=== PATIENT | female | born 1975 | race Hispanic/Latino ===

== ENCOUNTER 2019-09-13 17:33 | Inpatient (IN) | payer OTHER, SELFPAY ==
[2019-09-13 18:16] LABS: #Lymphocytes 1.1 thou/uL (1.20-3.40); #Neutrophils 11.2 thou/uL (1.40-6.50); %Basophils 0.3 % (0.0-1.0); %Eosinophils 0.4 % (0.0-10.0); %Monocytes 7.2 % (0.0-10.0); %Neutrophils 84.2 % (42.0-75.0); Hemoglobin 6.6 g/dL (12.0-16.0); Mean Corpuscular HGB CONC 28.3 g/dL (32.0-36.0); Mean Corpuscular Hemoglobin 16.7 pg (27.0-31.0); Mean Corpuscular Volume 59.2 fL (78.0-98.0); Mean Platelet Volume 9.8 fL (7.4-10.4); Platelet Count 259 thou/uL (130-400); RBC Distribution Width 20.2 % (11.5-14.5); Red Blood Cell (RBC) Count 3.93 mill/uL (4.20-5.40); White Blood Cell (WBC) Count 13.3 thou/uL (4.8-10.8)
[2019-09-13] MEDS ORDERED: cefTRIAXone\\ROCEPHIN 2 GM VIAL ONE (18:39)
--- NOTE | 2019-09-13 18:45 | RAD ---
PORTABLE CHEST: History: Fever, headache, weakness. Comparison: 11-06-04 FINDINGS: The lungs are well aerated and appear clear. No infiltrate identified. Heart and mediastinum appear n ormal. IMPRESSION: No evidence of infiltrate. POS: AGW
[2019-09-13 18:55] LABS: Anisocytosis SLIGHT = 6-15 cells (100X) (0-5/hpf); Elliptocytes SLIGHT = 2-5 cells (100X) (0-1/hpf); Hypochromia SLIGHT = 6-15 cells (100X) (0-5/hpf); Large Platelets SLIGHT; MDiff Complete? YES; Microcytosis SLIGHT = 6-15 cells (100X) (0-5/hpf); Ovalocytes SLIGHT = 2-5 cells (100X) (0-1/hpf); Platelet Morphology Comment Appears Adequate; Polychromasia SLIGHT = 2-3 cells (100X) (0-2/hpf); Reflex for Review?? YES; Schistocytes SLIGHT = 2-5 cells (100X) (0-1/hpf)
[2019-09-13 19:21] LABS: ALT (SGPT) 28 U/L (8-55); AST (SGOT) 37 U/L (5-34); Albumin 3.4 g/dL (3.5-5.0); Alkaline Phosphatase 78 U/L (40-110); Anion Gap 14 mmol/L (10-20); BUN (Urea Nitrogen) 14 mg/dL (7.0-18.7); Bilirubin, Total 0.4 mg/dL (0.2-1.2); Calc. Creatinine Clearance 0 mL/min (70-130); Calcium 8.6 mg/dL (7.8-10.44); Carbon Dioxide 19 mmol/L (22-29); Chloride 107 mmol/L (98-107); Estimated GFR-MDRD Greater than 90; Globulin 3.7 g/dL (2.4-3.5); Glucose 129 mg/dL (70-105); Protein, Total 7.1 g/dL (6.0-8.3); Sodium 136 mmol/L (136-145)
[2019-09-13 21:58] LABS: Bacteria/HPF 4+ HPF (None Seen); Bilirubin Negative (Negative); Blood, Urine 2+ (Negative); Clarity Turbid (Clear); Glucose, Urine (Dipstick) Normal (Negative); Ketone, Urine Negative (Negative); Leukocyte 500 Leu/uL (Negative); Mucous/LPF Rare LPF (<2+); Nitrite 2+ (Negative); Protein, Urine (Dipstick) 200 mg/dL (Neg-Trace); RBC/HPF 21-50 HPF (0-3); Renal Epithelial 0-3 HPF (None Seen); Specific Gravity, Urine 1.022 (1.002-1.036); Squamous Epithelial 0-3 HPF (0-3); Urobilinogen Normal mg/dL (Less than 2); WBC/HPF Greater than 50 HPF (0-3)
[2019-09-13] MEDS ORDERED: Guaifenesin DM 100-10/5 ML UDCUP PO PRN (22:54)
[2019-09-13] MEDS ORDERED: HYDROcodone/Acetaminophen 5/325 mg Tablet PO PRN ×2 (22:54)
[2019-09-13] MEDS ORDERED: Acetaminophen 650 MG Suppository PR PRN (22:54)
[2019-09-13] MEDS ORDERED: Ondansetron ODT 4 MG TAB PO PRN (22:54)
[2019-09-13] MEDS ORDERED: Ondansetron PF 4 MG/2 ML Vial IVP PRN (22:54)
[2019-09-13] MEDS ORDERED: Sodium Chloride 0.9% 1,000 ML IV SCH (23:00)
--- NOTE | 2019-09-13 23:20 | PDOC.HHP ---
Hospitalist HPI - History of Present Illness weakness generalize malaise History of Present Illness: Case of an 43y/o female with pmhx of chronic anemia who comes to hospital complaining of general weakness, general malaise, chills, nausea and body aches since of last week. patient states that she decided to come today because she kept feeling worse. refers went to a clinic today when she got tested for covid and was negative, she kept feeling bad for which she decided to come to hospital for evaluation. patient denies fever cough sputum production or diarrhea does refers some headache and dysuria. at the ED patient was diagnosed with covid 19+ with positive test, uti and anemia wich a hg of 6. patient states that her pcp did told her she had anemia and to eat meat, but has never required a tranfusion, also denies any abnormal bleeding from cuts or menses also denies any spontaneous hematomas, patient does refer recent weight loss Hospitalist ROS - Review of Systems All other systems reviewed; all pertinent +/- noted in HPI/Subj Hospitalist History - Social History Smoking Status: Never smoker Alcohol: reports: None Drugs: reports: none Living Situation: With Family - Exam General Appearance: ill appearing Eye: PERRL, anicteric sclera ENT: normocephalic atraumatic, no oropharyngeal lesions Neck: supple, symmetric, no JVD Heart: no murmur, no gallops, no rubs Heart - other findings: tachycardic Respiratory: CTAB, no wheezes, no rales, no ronchi Gastrointestinal: soft, non-tender, non-distended, normal bowel sounds Gastrointestinal - other findings: palpable hard mass on LLQ Extremities: no cyanosis, no clubbing, no edema Skin: normal turgor, no lesions, no rashes Neurological: cranial nerve grossly intact, normal sensation to touch Musculoskeletal: normal tone, normal strength, no muscle wasting Psychiatric: normal affect, normal behavior, A&O x 3 Hospitalist Results - Labs Result Diagrams: 09/13/19 17:56 09/13/19 17:44 Lab results: WBC 13.3 thou/uL (4.8-10.8) H 09/13/19 17:56 Hgb 6.6 g/dL (12.0-16.0) L 09/13/19 17:56 Hct 23.3 % (36.0-47.0) L 09/13/19 17:56 MCV 59.2 fL (78.0-98.0) L 09/13/19 17:56 Plt Count 259 thou/uL (130-400) 09/13/19 17:56 Neutrophils % 84.2 % (42.0-75.0) H 09/13/19 17:56 Sodium 136 mmol/L (136-145) 09/13/19 17:44 Potassium 4.0 mmol/L (3.5-5.1) 09/13/19 17:44 Chloride 107 mmol/L (98-107) 09/13/19 17:44 Carbon Dioxide 19 mmol/L (22-29) L 09/13/19 17:44 BUN 14 mg/dL (7.0-18.7) 09/13/19 17:44 Creatinine 0.65 mg/dL (0.6-1.1) 09/13/19 17:44 Glucose 129 mg/dL (70-105) H 09/13/19 17:44 Lactic Acid 1.9 mmol/L (0.5-2.2) 09/13/19 17:56 Calcium 8.6 mg/dL (7.8-10.44) 09/13/19 17:44 Total Bilirubin 0.4 mg/dL (0.2-1.2) 09/13/19 17:44 AST 37 U/L (5-34) H 09/13/19 17:44 ALT 28 U/L (8-55) 09/13/19 17:44 Alkaline Phosphatase 78 U/L (40-110) 09/13/19 17:44 Troponin I Less than 0.010 ng/mL (< 0.028) 09/13/19 17:44 Serum Total Protein 7.1 g/dL (6.0-8.3) 09/13/19 17:44 Albumin 3.4 g/dL (3.5-5.0) L 09/13/19 17:44 Urine Ketones Negative mg/dL (Negative) 09/13/19 21:37 Urine Blood 2+ (Negative) A 09/13/19 21:37 Urine Nitrite 2+ (Negative) A 09/13/19 21:37 Ur Leukocyte Esterase 500 Karime/uL (Negative) A 09/13/19 21:37 Urine RBC 21-50 HPF (0-3) A 09/13/19 21:37 Urine WBC Greater than 50 HPF (0-3) A 09/13/19 21:37 Ur Squamous Epith Cells 0-3 HPF (0-3) 09/13/19 21:37 Urine Bacteria 4+ HPF (None Seen) A 09/13/19 21:37 Hospitalist H&P A/P - Problem (1) COVID-19 Code(s): U07.1 - COVID-19 Status: Acute (2) UTI (urinary tract infection) Status: Acute (3) Anemia Code(s): D64.9 - ANEMIA, UNSPECIFIED Status: Acute (4) Sepsis Code(s): A41.9 - SEPSIS, UNSPECIFIED ORGANISM Status: Acute - Plan Plan: 43 y/o female with the stated pmhx who comes to hospital with viral like syndromes, dx with covid, uti and anemia acute on chronic anemia - hg 6.6 will be transfused 2 prbcs - fecal occult blood x2 - decreased mcv will order iron panel, increased rdw might have mixed compenent will also order folate and v12 - patient with a suspicious hard mass on abdomen, pt does refers this is normal for her but given the fact that its an obvious mass and her decrease in hg and recent weight loss will evaluated this further with abd CT covid 19 - tested positive today - started prophylactically on rocephin and azithrimycin - cxr clean - 100% 02 sat at [facility], if this worsens consider adding dexamethasone 6mg ivd x 10 days uti - u/a consistent with uti - f/u blood urine cultures - on rocephin sepsis - tachycardia with elevated wbc with urine as target + covid + - sepsis bundles initialled, pt receive ivfs, cultures were taken and abx were started - LA 1.9
[2019-09-13] MEDS ORDERED: Azithromycin 500 MG in Sodium Chloride 0.9% 250 ML 250 ML IVPB SCH (23:59)
[2019-09-14 00:42] VITALS: BMI 15.0
[2019-09-14] MEDS: Acetaminophen 325 MG TAB PO PRN ×4 (01:24→22:10)
[2019-09-14 06:57] LABS: Band 9 % (5-11); Hemoglobin 8.3 g/dL (12.0-16.0); Hypochromia SLIGHT = 6-15 cells (100X) (0-5/hpf); Lymphocytes 7 % (21-51); MDiff Complete? YES; Mean Corpuscular Volume 63.5 fL (78.0-98.0); Mean Platelet Volume 10.2 fL (7.4-10.4); Monocytes 4 % (0-10); Neutrophil 80 % (42-75); Platelet Count 222 thou/uL (130-400); Platelet Morphology Comment Appears Adequate; Red Blood Cell (RBC) Count 4.34 mill/uL (4.20-5.40); Target Cells SLIGHT = 2-5 cells (100X) (0-1/hpf); White Blood Cell (WBC) Count 10.1 thou/uL (4.8-10.8)
[2019-09-14 07:03] LABS: ALT (SGPT) 28 U/L (8-55); AST (SGOT) 40 U/L (5-34); Albumin 3.1 g/dL (3.5-5.0); Alkaline Phosphatase 93 U/L (40-110); Anion Gap 11 mmol/L (10-20); BUN (Urea Nitrogen) 12 mg/dL (7.0-18.7); Bilirubin, Total 0.5 mg/dL (0.2-1.2); Calc. Creatinine Clearance 58 mL/min (70-130); Carbon Dioxide 21 mmol/L (22-29); Chloride 109 mmol/L (98-107); Estimated GFR-MDRD Greater than 90; Globulin 3.4 g/dL (2.4-3.5); Glucose 95 mg/dL (70-105); Iron 11 ug/dL (50-170); Iron Binding Capacity, Total 260 mcg/dL (265-497); Potassium 3.6 mmol/L (3.5-5.1); Protein, Total 6.5 g/dL (6.0-8.3); Sodium 137 mmol/L (136-145)
--- NOTE | 2019-09-14 09:43 | CT ---
CT ABDOMEN AND PELVIS WITH ORAL AND IV CONTRAST: Date: 09/14/2019 HISTORY: Abdominal mass. FINDINGS: The lung bases are clear. The liver, spleen, pancreas, adrenal glands, and left kidney are normal. Th ere is a delayed right nephrogram with hydroureteronephrosis on the right. No calcified gallstones ar e seen. There is a complex abdominopelvic mass with solid and cystic components measuring 2.4 cm (CC) x 11.5 cm (AP) x 17.0 cm (transverse) arising from the right adnexal region. There is mass effect an d deviation of the uterus to the left. This may either be arising from the right ovary or may represe nt an exophytic uterine leiomyoma. No free air, free fluid, or lymphadenopathy seen. No osteolytic or osteoblastic lesions are seen. IMPRESSION: Large abdominopelvic mass likely of gynecologic origin. Consultation with cutter tender is recommended . POS: SJSHILO
[2019-09-14] MEDS ORDERED: Iopamidol-370 76% 500 ML 1 ML ONE (10:03)
[2019-09-14] MEDS: Sodium Chloride 0.9% 1,000 ML IV SCH ×2 (13:18→20:07)
[2019-09-14] MEDS: Ferrous Sulfate 325 MG TAB PO SCH (16:05)
--- NOTE | 2019-09-14 16:36 | PDOC.HOSPP ---
- Subjective Encounter Date: 09/14/19 Encounter Time: 11:45 Subjective: pt up in bed no complains - Objective Vital Signs & Weight: Vital Signs (12 hours) Temp Pulse Pulse Resp BP BP Pulse Ox 09/14/19 16:00 100.4 F H 101 H 20 103/63 100 09/14/19 11:55 98.6 F 84 16 103/65 98 09/14/19 10:01 99.9 F H 103 H 18 104/67 96 09/14/19 09:46 99.9 F H 101 H 18 107/68 97 09/14/19 08:00 101.5 F H 105 H 22 H 104/69 100 09/14/19 06:15 98.5 F 89 22 H 105/64 100 Weight Admit Weight 76 lb 11.534 oz Weight 76 lb 11.534 oz I&O: 09/13/19 09/14/19 09/15/19 06:59 06:59 06:59 Intake Total 1350 350 Output Total 700 Balance 650 350 Result Diagrams: 09/14/19 06:18 09/14/19 06:18 Hospitalist ROS - Review of Systems Cardiovascular: denies: chest pain, palpitations, orthopnea, paroxysmal noc. dyspnea, edema, light headedness, other Gastrointestinal: denies: nausea, vomiting, abdominal pain, diarrhea, constipation, melena, hematochezia, other Genitourinary: denies: dysuria, frequency, incontinence, hematuria, retention, other - Medication Medications: Active Medications Generic Name Dose Route Start Last Admin Trade Name Freq PRN Reason Stop Dose Admin Acetaminophen 650 mg 09/13/19 22:54 09/14/19 16:28 Tylenol PO 650 mg Q4H PRN Administration Headache/Fever/Mild Pain (1-3) Ferrous Sulfate 325 mg 09/14/19 17:00 09/14/19 16:05 Feosol PO 325 mg BID-WM YUSRA Administration Sodium Chloride 1,000 mls @ 125 mls/hr 09/14/19 09:18 09/14/19 13:18 Normal Saline 0.9% IV 1,000 mls .Q8H YUSRA Administration - Exam Respiratory: rales Gastrointestinal: soft, normal bowel sounds Gastrointestinal - other findings: tender on palpation to RLQ Extremities: negative: no cyanosis, no clubbing, no edema, 1+ LE edema, 2+ LE edema, clubbing Hosp A/P (1) Mass of abdomen Code(s): R19.00 - INTRA-ABD AND PELVIC SWELLING, MASS AND LUMP, UNSP SITE Status: Acute (2) Anemia Code(s): D64.9 - ANEMIA, UNSPECIFIED Status: Acute (3) COVID-19 Code(s): U07.1 - COVID-19 Status: Acute (4) Sepsis Code(s): A41.9 - SEPSIS, UNSPECIFIED ORGANISM Status: Acute (5) UTI (urinary tract infection) Status: Acute (6) Bacteremia Code(s): R78.81 - BACTEREMIA Status: Acute - Plan pt states that she has had this abdomen mass for the past few years. she has never had a pap smear or any gynecology testing. she has lost a significant amount of weight but cannot tell me how much. will continue ceftriaxone and fluids. spoke with obgyn who ordered a ca 125 which was normal. Recommended outpatient workup. On dvt ppx. pt on room air will hold off on start pt on steroids.
--- NOTE | 2019-09-14 17:26 | CON ---
DATE OF CONSULTATION: 09/14/2019 REASON FOR CONSULTATION: Pyelonephritis and COVID infection. HISTORY OF PRESENT ILLNESS: A 43-year-old, 1st admission to this hospital, with a history of anemia and one episode of urinary tract infection in the past, who developed fever and body aches about 8 days before admission. She also has a history of about 10-pound weight loss over the past 11 months. She was having some dysuria as well. Apparently, she went to another emergency room and a rapid screening was done for COVID, which was negative reportedly. Because of persistence of symptoms, she came to [facility]. Initial findings included BP 100/54, pulse 114, respiratory rate 25, temperature 100.1, and O2 saturations were 99 on room air. She appeared uncomfortable at rest. Had some mucosal discharge in the nasal area. The lung examination was normal. The abdomen was described as nontender and without distention. The patient has been given ceftriaxone, Robitussin, and Loyal. Currently Ms. Baez is feeling uncomfortable at rest mostly due to myalgias and abdominal discomfort. She denies any headaches. No visual symptoms, sore throat, odynophagia, or dysphagia. No vomiting. The dysuria has improved. No diarrhea or bleeding. Some back pain. MEDICAL HISTORY: 1. One episode of UTI. 2. She has a G4, P3, and 1. ALLERGIES: NONE. SOCIAL HISTORY: She stays at home. works, but is unemployed at the moment. She has 4 children. Never smoker. CURRENT MEDICATIONS: Have been described above. FAMILY HISTORY: Noncontributory. PHYSICAL EXAMINATION: VITAL SIGNS: T-max 102.2 and now she is 98.6, blood pressure 103/65, pulse 84, respirations 16, and O2 saturation 98 on room air. SKIN: Normal. She is voiding in the toilet. GENERAL: She appears almost cachectic. LYMPHATICS: No lymphadenopathy. HEENT: Ocular movements conjugate. Oral cavity normal. Numerous teeth in place, in fairly decent shape. NECK: Supple. No jugular vein distention. LUNGS: Symmetric, clear breath sounds. HEART: S1 and S2. Regular rate. No S3 or S4. ABDOMEN: Distention in the lower segments right above the suprapubic area. There is dullness to percussion there and appears to be a distended bladder. She has moderate tenderness at the site. No organomegaly noted otherwise. EXTREMITIES: No joint inflammatory activity. No edema. Pulses 1+ in dorsalis pedis. Moves extremities equally. NEUROLOGIC: She is awake and oriented, follows commands. LABORATORY DATA: Sodium 136 and 137, creatinine is stable at 0.68. Iron 11 and TIBC 260, she does have iron deficiency plus anemia of inflammation. Transaminases, mildly elevated AST. Troponin normal. CRP was elevated at 19.63. Albumin 3.4 and globulin 3.7. Procalcitonin was 1.77. Folate 7.9. White cell count was 13, 000 and now at 10,000, hemoglobin 6.6 and 8.3, and platelets were 259, showed a predominance of mature neutrophils. Urinalysis with greater than 50 wbc's. COVID PCR was detected. She had a chest x-ray, which did not show any evidence of infiltrates. An abdomen and pelvis CT scan remarkable for normal left kidney and hydroureteronephrosis on the right side. There is a complex abdominal pelvic mass with solid and cystic components, 2.4 x 11.5 x 17 cm, arising from the right adnexal region. 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 In addition to that, she has mild COVID illness, and no evidence of pneumonia, so I do not think that is going to represent a problem. She will continue with the Rocephin. I will follow up the susceptibility profile and she will need a gynecological evaluation. I would probably also have Urology take a look at the patient to see if she would merit intervention, such as placement of a stent if it is felt to be necessary. Job ID: [id number] [facility]
[2019-09-14] MEDS: cefTRIAXone\\ROCEPHIN 2 GM in Sodium Chloride 0.9% 100 ML IVPB SCH (20:07)
[2019-09-15] MEDS: Sodium Chloride 0.9% 1,000 ML IV SCH (04:45)
--- NOTE | 2019-09-15 08:06 | CON ---
DATE OF CONSULTATION: 09/14/2019 HISTORY OF PRESENT ILLNESS: I was consulted on this patient given the findings of a large pelvic mass arising from what appears to be the right adnexal region. In the admitting H and P, it is noted that the patient reported that this has been present for some time. A CA-125 was ordered and noted to be well within normal limits at 17. The patient is COVID-19 positive at this time. Her primary reasons for admission were due to weakness, chills, nausea, and body aches with her diagnosis of COVID-19 and generalized symptoms likely secondary to that diagnosis. This pelvic mass at this time can best be served with outpatient management when she has become clear for infection. I have afforded these recommendations and findings to her primary provider, Dr. Karie Forman. I did not physically see the patient, but evaluated the case from the medical record and ordered a CA 125 and made recommendations for outpatient management. If there are any specific questions or acute problems concerning that we can assist with, please do not hesitate to contact us. Job ID: [id number] [facility]
[2019-09-15] MEDS ORDERED: IRON SUCROSE COMPLEX 100 MG/5 ML SLOW IVP SCH (08:30)
[2019-09-15] MEDS: Polyethylene Glycol 3350 17 GM Packet PO SCH (09:56)
[2019-09-15] MEDS: Ferrous Sulfate 325 MG TAB PO SCH ×2 (09:56→17:42)
[2019-09-15] MEDS: Acetaminophen 325 MG TAB PO PRN ×2 (10:10→19:57)
[2019-09-15] MEDS: Sodium Ferric Gluconate 62.5 MG/5 ML AMP IVPB SCH ×2 (12:37→13:23)
[2019-09-15] MEDS ORDERED: Iron, Sodium Ferric Gluconate 125 MG in Sodium Chloride 0.9% 100 ML IVPB SCH ×2 (13:00→13:15)
--- NOTE | 2019-09-15 19:42 | PDOC.HOSPP ---
- Subjective Encounter Date: 09/15/19 Encounter Time: 10:15 Subjective: pt up in chair feels better today. - Objective Vital Signs & Weight: Vital Signs (12 hours) Temp Pulse Resp BP Pulse Ox 09/15/19 16:00 98.5 F 69 16 108/67 97 09/15/19 12:00 98.1 F 57 L 16 113/72 96 09/15/19 08:00 99.7 F H 69 18 121/68 98 Weight Admit Weight 76 lb 11.534 oz Weight 76 lb 11.534 oz I&O: 09/14/19 09/15/19 09/16/19 06:59 06:59 06:59 Intake Total 1350 350 950 Output Total 700 Balance 650 350 950 Result Diagrams: 09/14/19 06:18 09/14/19 06:18 Hospitalist ROS - Review of Systems Cardiovascular: denies: chest pain, palpitations, orthopnea, paroxysmal noc. dyspnea, edema, light headedness, other Gastrointestinal: denies: nausea, vomiting, abdominal pain, diarrhea, constipation, melena, hematochezia, other Genitourinary: denies: dysuria, frequency, incontinence, hematuria, retention, other - Medication Medications: Active Medications Generic Name Dose Route Start Last Admin Trade Name Freq PRN Reason Stop Dose Admin Acetaminophen 650 mg 09/13/19 22:54 09/15/19 10:10 Tylenol PO 650 mg Q4H PRN Administration Headache/Fever/Mild Pain (1-3) Ferrous Sulfate 325 mg 09/14/19 17:00 09/15/19 17:42 Feosol PO 325 mg BID-WM YUSRA Administration Ceftriaxone Sodium 2 gm/ 100 mls @ 200 mls/hr 09/14/19 21:00 09/14/19 20:07 Sodium Chloride IVPB 100 mls 2100 YUSRA Administration Polyethylene Glycol 17 gm 09/15/19 09:00 09/15/19 09:56 Miralax PO 17 gm DAILY YUSRA Administration - Exam Neck: negative: supple, symmetric, no JVD, no thyromegaly, no lymphadenopathy, no carotid bruit, JVD Heart: negative: RRR, no murmur, no gallops, no rubs, normal peripheral pulses, irregular, diminshed peripheral pulses, murmur present, II/IV, III/IV Respiratory: negative: CTAB, no wheezes, no rales, no ronchi, normal chest expansion, no tachypnea, normal percussion, rales, rhonchi, tachypneic, wheezes Gastrointestinal: soft, normal bowel sounds Gastrointestinal - other findings: abdomen mass palpable Hosp A/P (1) Mass of abdomen Code(s): R19.00 - INTRA-ABD AND PELVIC SWELLING, MASS AND LUMP, UNSP SITE Status: Acute (2) Anemia Code(s): D64.9 - ANEMIA, UNSPECIFIED Status: Acute (3) COVID-19 Code(s): U07.1 - COVID-19 Status: Acute (4) Sepsis Code(s): A41.9 - SEPSIS, UNSPECIFIED ORGANISM Status: Acute (5) UTI (urinary tract infection) Status: Acute (6) Bacteremia Code(s): R78.81 - BACTEREMIA Status: Acute - Plan pt states that she has had this abdomen mass for the past few years. she has never had a pap smear or any gynecology testing. she has lost a significant amount of weight but cannot tell me how much. will continue ceftriaxone and fluids. spoke with obgyn who ordered a ca 125 which was normal. Recommended outpatient workup. On dvt ppx. pt on room air will hold off on start pt on steroids. 09/14 pt feels well, will stop iv fluids. possible home in the next 24-48hr. she is not on any oxygen.
[2019-09-15] MEDS: cefTRIAXone\\ROCEPHIN 2 GM in Sodium Chloride 0.9% 100 ML IVPB SCH (19:58)
[2019-09-16] MEDS ORDERED: Iron, Sodium Ferric Gluconate 125 MG in Sodium Chloride 0.9% 100 ML IVPB SCH (07:30)
[2019-09-16 07:38] LABS: ALT (SGPT) 19 U/L (8-55); AST (SGOT) 17 U/L (5-34); Albumin 2.7 g/dL (3.5-5.0); Alkaline Phosphatase 79 U/L (40-110); Anion Gap 10 mmol/L (10-20); BUN (Urea Nitrogen) 7 mg/dL (7.0-18.7); Bilirubin, Total 0.2 mg/dL (0.2-1.2); Calc. Creatinine Clearance 70 mL/min (70-130); Calcium 7.7 mg/dL (7.8-10.44); Carbon Dioxide 19 mmol/L (22-29); Chloride 109 mmol/L (98-107); Estimated GFR-MDRD Greater than 90; Globulin 3.2 g/dL (2.4-3.5); Glucose 90 mg/dL (70-105); Potassium 3.3 mmol/L (3.5-5.1); Protein, Total 5.9 g/dL (6.0-8.3); Sodium 135 mmol/L (136-145)
[2019-09-16] MEDS: Polyethylene Glycol 3350 17 GM Packet PO SCH (08:25)
[2019-09-16] MEDS: Ferrous Sulfate 325 MG TAB PO SCH (08:25)
[2019-09-16 08:37] LABS: #Eosinphils 0.6 thou/uL (0.0-0.7); #Lymphocytes 1.5 thou/uL (1.20-3.40); #Monocytes 0.8 thou/uL (0.11-0.59); #Neutrophils 4.7 thou/uL (1.40-6.50); %Basophils 0.4 % (0.0-1.0); %Eosinophils 8.1 % (0.0-10.0); %Lymphocytes 19.8 % (21.0-51.0); %Monocytes 9.9 % (0.0-10.0); %Neutrophils 61.8 % (42.0-75.0); Anisocytosis MODERATE=16-30 cells (100X) (0-5/hpf); Hemoglobin 8.6 g/dL (12.0-16.0); Hypochromia SLIGHT = 6-15 cells (100X) (0-5/hpf); MDiff Complete? YES; Mean Corpuscular HGB CONC 31.2 g/dL (32.0-36.0); Mean Corpuscular Hemoglobin 20.5 pg (27.0-31.0); Mean Corpuscular Volume 65.8 fL (78.0-98.0); Mean Platelet Volume 9.1 fL (7.4-10.4); Ovalocytes SLIGHT = 2-5 cells (100X) (0-1/hpf); Platelet Count 260 thou/uL (130-400); Platelet Morphology Comment Appears Adequate; Polychromasia SLIGHT = 2-3 cells (100X) (0-2/hpf); RBC Distribution Width 25.9 % (11.5-14.5); Red Blood Cell (RBC) Count 4.19 mill/uL (4.20-5.40); White Blood Cell (WBC) Count 7.6 thou/uL (4.8-10.8)
[2019-09-16] MEDS ORDERED: Cipro 250 MG TAB PO SCH ×2 (09:27→20:00)
[2019-09-16] MEDS ORDERED: Potassium Chloride 20 MEQ TAB PO SCH (09:30)
[2019-09-16] MEDS ORDERED: Ciprofloxacin 500 MG TAB PO SCH ×2 (09:45→20:00)
[2019-09-16] MEDS: Acetaminophen 325 MG TAB PO PRN (13:06)
[2019-09-16 13:23] VITALS: BP 137/86; TEMP 97.9
--- NOTE | 2019-09-16 19:50 | DIS ---
DATE OF ADMISSION: 09/13/2019 DATE OF DISCHARGE: 09/16/2019 DISCHARGE DIAGNOSES: As of the followin. Anemia, most likely secondary to iron deficiency. 2. Abdominal tumor. 3. Bacteremia from Escherichia coli. 4. Urinary tract infection. 5. Mild hydronephrosis on the right. 6. COVID positive. HOSPITAL COURSE: The patient is a very pleasant 43-year-old female, who appears older than her stated age, who presents to the hospital with complaints of generalized weakness. The patient at this time was found to have an H and H of 6.6. She was given 2 units of blood. Her H and H have been stable over 24 hours at 8.6. She was also found to be iron deficiency anemia. She received 2 doses of IV iron and was put on oral iron. She was COVID positive, however, clinically did not require any treatment with steroids or any breathing or was not hypoxic. However, she did have a very significant large abdominal mass for which I did get RF TECHNICIAN, who did a CA-125, which was negative. The large abdominal pelvic mass appeared to be gynecological in origin. When I used a fruit sorter to ask questions, she stated that she had never had a pelvic exam and this mass has been there for some time. She also has had significant amount of weight loss. I spoke with the patient's using a digital content coordinator and explained that she will need to follow up with the news assistant as an outpatient in the next few weeks to look into this mass. Especially since this mass is pushing on her bladder, which is also causing her to have some mild hydronephrosis. The patient's blood cultures indicated E coli, which is susceptible to almost everything. I will send her home with ciprofloxacin. She was seen by Infectious Disease also. I spoke with Urology did not think the need for any stenting since the patient's creatinine was normal and she was having no trouble urinating. HOME MEDICATIONS: 1. Senokot 8.6 daily. 2. Florastor 250 daily. 3. Iron 325 twice a day. 4. Cipro 500 mg twice a day. PHYSICAL EXAMINATION: VITAL SIGNS: On discharge, 98.3, 63, 18, 95% on room air, 125/75. GENERAL: She is awake, alert, and oriented x3. Does not appear in distress. CV: S1, S2 present. No murmurs, rubs, or gallops. ABDOMEN: Soft. Bowel sounds are present x2. Pain upon palpation to her abdominal wall area on the left side. HEENT: She appears again very cachectic. However, she is eating without any problems. Again, she has been emphasized to follow up with RF TECHNICIAN in order to fix this large tumor that she has, which has been also displacing her bladder and also causing some hydronephrosis on her right ureter. However, she is able to urinate and her creatinine has been normal. Job ID: [id number]
== END 2019-09-16 14:06 | disposition home or self-care (01) | DRG 871 ==
LOC: ERS 17:33 → OBSVTOIN 22:31 → T4-B 22:31
PROVIDERS: ADMIT Internal Medicine; ATTEND Internal Medicine
PROC: 8E0ZXY6 Isolation (ICD-10-PCS; principal; 2019-09-13)
DX: A41.51 Sepsis due to Escherichia coli [E. coli] (principal); U07.1 COVID-19; N13.6 Pyonephrosis; R64 Cachexia; Z68.1 Body mass index [BMI] 19.9 or less, adult; D50.9 Iron deficiency anemia, unspecified; R19.00 Intra-abdominal and pelvic swelling, mass and lump, unspecified site
CPT/HCPCS: 36415; 36430; 71045; 74177; 80053; 81003; 81015; 82274; 82607; 82728; 82746; 83540; 83550; 83605; 84145; 84484; 85007; 85025; 85027; 85060; 86140; 86304; 86850; 86870; 86900; 86901; 86922; 87040; 87077; 87086; 87149; 87186; 93005; 96365; 96366; 96375; G0378; J0456; J0696; J2916; J3490; J7050; P9016; Q9967; U0002